=== PATIENT | female | born 1955 | race Caucasian/White ===

== ENCOUNTER 2019-12-03 09:26 | Emergency (ER) | payer MEDICARE, MEDICAID ==
[~2019-12-03] VITALS: Ht 160 cm; Wt 59.1 kg
[2019-12-03 09:44] VITALS: BP 110/55
[2019-12-03] MEDS ORDERED: HYDROcodone/acetaminophen 10/325mg tab PO ONE (10:50)
== END 2019-12-03 12:44 | disposition home or self-care (01) ==
LOC: ER 09:26
DX: S76.011A Strain of muscle, fascia and tendon of right hip, initial encounter (principal); G89.29 Other chronic pain; G62.9 Polyneuropathy, unspecified; X58.XXXA Exposure to other specified factors, initial encounter; Y93.89 Activity, other specified; Y92.89 Other specified places as the place of occurrence of the external cause; Y99.8 Other external cause status
CPT/HCPCS: 73502; 99283